=== PATIENT | female | born 2000 | race Caucasian/White ===

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

== ENCOUNTER 2022-01-22 09:34 | Inpatient (IN) | payer BC, OTHER ==
[2022-01-22] MEDS ORDERED: CARBOPROST TROMETHAMINE 250 MCG/ML 1 ML AMP IM PRN (10:06)
[2022-01-22] MEDS ORDERED: OXYTOCIN 10 UNIT/ML 1 ML VIAL IM PRN (10:06)
[2022-01-22] MEDS ORDERED: LIDOCAINE 1% (PF) 10 MG/ML (30 ML SDV) SQ PRN (10:06)
[2022-01-22] MEDS ORDERED: METHYLERGONOVINE 0.2 MG/ML 1 ML AMP IM PRN (10:06)
[2022-01-22] MEDS ORDERED: TERBUTALINE 1 MG/ML VIAL SQ PRN (10:06)
[2022-01-22] MEDS ORDERED: LACTATED RINGERS 1,000 ML IV SCH (10:15)
[2022-01-22] MEDS: OXYTOCIN 30 UNITS/500 ML NS 30 UNIT in SALINE 1 500ML.BAG IV SCH ×2 (10:50→16:45)
[2022-01-22 10:54] LABS: HCT 33.7 % (34.0-46.0); HGB 11.8 gm/dL (11.4-16.0); MCHC 34.9 g/dL (31.0-37.0); MCV 91.6 fL (80.0-100.0); Mean Platelet Volume 11.7; Platelet Count 150 k/uL (150-450); RBC 3.68 m/uL (3.80-5.40); RDW 12.4 % (11.5-15.5)
[2022-01-22 11:31] LABS: Amphetamine Screen,Urine Not Detected (NotDetected); Barbiturate Screen,Urine Not Detected (NotDetected); Benzodiazepines Screen,Urine Not Detected (NotDetected); Cocaine Screen,Urine Not Detected (NotDetected); Methadone Screen, Urine Not Detected (NotDetected); Opiate Screen,Urine Not Detected (NotDetected); Oxycodone Screen, Urine Not Detected (NotDetected); Phencyclidine Screen,Urine Not Detected (NotDetected); Tricyclic Antidepressant,Urine Not Detected (NotDetected); Urn Cannabinoid Scrn Not Detected (NotDetected)
[2022-01-22] MEDS: BUTORPHANOL 1 MG/ML 1 ML VIAL IV PRN ×2 (12:05→14:17)
[2022-01-22 12:49] LABS: Lymphocytes # (M) 2.47 k/uL (1.0-4.8); Monocytes # (M) 0.52 k/uL (0-1.0); Neutrophils # (M) 10.01 k/uL (1.3-7.7); Neutrophils % (M) 77 %; Nucleated Red Blood Cells 0 /100 WBC (0-0); Total Cells Counted 100
[2022-01-22 12:50] LABS: Large Platelets Present
--- NOTE | 2022-01-22 13:03 | P.HPOB ---
History of Present Illness H&P Date: 01/22/22 Chief Complaint: My water broke at 7:30 this morning This is a 21-year-old 1 para 0 EDC 01/24/2022 at 39-5/7 weeks' gestation who presents with clear fluid, spontaneous amniorrhexis which occurred at 0730 hours. Mild irregular uterine contractions to follow. Fetus is been active throughout the . Past medical history is significant for GERD, ulcer disease, asthma, anxiety, hypoglycemia. Past surgical history wisdom teeth extracted, EGD. Current medications was around 15 mg twice daily, vitamins daily, baby aspirin daily. ALLERGIES none known. Family history is significant for asthma, heart disease, hypertension, diabetes, GERD, heart attack, hypoglycemia, mitral valve prolapse, dyslexia, degenerative disc disease. Social history patient is single, father of the baby is present and involved. She works at [employer]. She denies alcohol tobacco or drug use. history significant for blood type B positive, rubella status immune. VDRL testing, urine culture, hepatitis B surface antigen, HIV testing, gonorrhea and chlamydia cultures, group B strep cultures all negative. One-hour Glucola 98. Initial urine drug screen positive for cannabinoids, repeat negative. On exam patient is 5 foot 5 inches, 180 pounds, blood pressure 127/80. General physical exam is within normal limits. Chest is current all griffith. Cervix is 3-4 cm dilated, 60% effaced, -2 station, vertex presentation. Artificial amniorrhexis of a fore bag reveals clear fluid. heart rate is consistent with reactive NST. Impression: 39-5/7 weeks intrauterine , early spontaneous labor. All signs reassuring. Plan: Analgesic options reviewed with the patient. Continue close maternal and surveillance. Oxytocin per hospital protocol. Anticipate normal spontaneous vaginal delivery. Review of Systems Constitutional: Reports as per HPI Past Medical History Past Medical History: Asthma, GERD/Reflux Additional Past Medical History / Comment(s): migraines History of Any Multi-Drug Resistant Organisms: None Reported Past Surgical History: No Surgical Hx Reported Additional Past Surgical History / Comment(s): oral Past Anesthesia/Blood Transfusion Reactions: No Reported Reaction Past Psychological History: Anxiety, Depression Smoking Status: Former smoker Past Alcohol Use History: None Reported Past Drug Use History: Marijuana Additional Drug Use History / Comment(s): Pt states she stopped using when she found out she was - Past Family History Father Family Medical History: Mitral Valve Prolapse (MVP) Medications and Allergies Home Medications Medication Instructions Recorded Confirmed Type Aspirin [Children's Aspirin] 81 mg PO DAILY 01/22/22 01/22/22 History Calcium Carbonate [Calcium] 600 mg PO DAILY 01/22/22 01/22/22 History Pnv,Calcium 72/Iron/Folic Acid 1 tablet PO DAILY 01/22/22 01/22/22 History [ Plus Tablet] Allergies Allergy/AdvReac Type Severity Reaction Status Date / Time No Known Allergies Allergy Verified 06/03/19 13:56 Exam Vital Signs Temp Pulse Resp BP Pulse Ox 01/22/22 10:06 97.3 F L 95 18 127/80 98 Intake and Output 01/21/22 01/22/22 01/22/22 22:59 06:59 14:59 Other: Weight 81.647 kg See dictation under HPI please Results Result Diagrams: 01/22/22 10:35 Abnormal Lab Results - Last 24 Hours (Table) 01/22/22 Range/Units 10:35 WBC 13.0 H (3.8-10.6) k/uL RBC 3.68 L (3.80-5.40) m/uL Hct 33.7 L (34.0-46.0) % Neutrophils # (Manual) 10.01 H (1.3-7.7) k/uL Assessment and Plan Assessment: 39-5/7 weeks intrauterine , early spontaneous labor. All signs reassuring. Plan: Oxytocin per hospital protocol. Close maternal and surveillance. Analgesic options reviewed. Anticipate normal spontaneous vaginal delivery. Time with Patient: Less than 30
[2022-01-22] MEDS ORDERED: BENZOCAINE/MENTHOL SPRAY 1 GM/SPRAY AEROSOL TOPICAL PRN (16:46)
[2022-01-22] MEDS ORDERED: diphenhydrAMINE 50 MG CAP PO PRN (16:46)
[2022-01-22] MEDS ORDERED: diphenhydrAMINE 50 MG/ML 1 ML VIAL IVP PRN ×2 (16:46)
[2022-01-22] MEDS ORDERED: diphenhydrAMINE 25 MG CAP PO PRN (16:46)
[2022-01-22] MEDS ORDERED: ZOLPIDEM 5 MG TAB PO PRN (16:46)
[2022-01-22] MEDS ORDERED: diphenhydrAMINE ELIXIR 25 MG/10 ML CUP PO PRN (16:46)
[2022-01-22] MEDS ORDERED: SIMETHICONE 80 MG CHEWABLE PO PRN (16:46)
[2022-01-22] MEDS ORDERED: LANOLIN CREAM 5 GM TUBE TOPICAL PRN (16:46)
[2022-01-22] MEDS ORDERED: HYDROCORTISONE 2.5% RECTAL CREAM 30 GM TUBE RECTAL PRN (16:46)
--- NOTE | 2022-01-22 16:46 | P.PROBDLV ---
Vaginal Delivery Note - . Vaginal Delivery Note: This is a 21-year-old 1 para 0 EDC 01/24/2022 at 39-5/7 weeks who presented from home with spontaneous amniorrhexis, clear fluid. is remarkable for rubella status immune, blood type B positive, rupee strep cultures negative. Please see dictated history and physical for details. Oxytocin augmentation was started and titrated per hospital protocol. She did receive Stadol intravenously 2, declining the option for epidural. heart rate was reassuring throughout the first and second stages of labor. Patient became completely dilated at 1611 hrs. She began the second stage of labor at that time. Perineal body was prepped and draped in the usual sterile fashion. With excellent maternal expulsive efforts the 's head crowned occiput anterior and she restituted accordingly. There was no nuchal cord noted. The right or anterior shoulder was delivered easily from underneath the pubic symphysis at which time the oropharynx, nasopharynx, and external nares were all bulb suctioned. Patient was officially delivered of a liveborn female at 1628 hrs. Umbilical cord was doubly clamped and ligated, she was handed to waiting nurses for evaluation where scores of 8 and 9 at one and 5 minutes respectively were given. Infant weighed 7 lbs. 2 oz. or 3225 g. Placenta delivered spontaneously, it was inspected and noted to be intact with trivascular cord at 1632 hrs. Perineal body was then redraped. Careful inspection of the cervix, vagina, perineum, periurethral, and perirectal areas revealed a very small first-degree midline laceration at 6:00. This was injected with 1% plain lidocaine and repaired in the usual fashion with 3-0 repeat suture. Excellent reapproximation was noted. Fundus is firm and in the midline, symmetric and 18 week size upon completion of delivery. Patient and her family are allowed to begin the bonding experience in the LDR.
[2022-01-22] MEDS: IBUPROFEN 600 MG TAB PO SCH (17:53)
[2022-01-22 21:51] VITALS: RESP 16
[2022-01-22] MEDS: busPIRone HCl 5 MG TAB PO SCH (21:52)
[2022-01-22] MEDS: SENNOSIDES-DOCUSATE SODIUM 1 EACH TAB PO SCH (21:52)
[2022-01-22] MEDS: ACETAMINOPHEN TAB 325 MG TAB PO PRN (23:10)
[2022-01-23] MEDS: IBUPROFEN 600 MG TAB PO SCH ×3 (04:10→13:10)
--- NOTE | 2022-01-23 07:49 | P.DS ---
Providers Date of admission: 01/22/22 09:53 Expected date of discharge: 01/23/22 Attending physician: Ashely Orozco Primary care physician: Stated None Hospital Course: This is a 22-year-old 1 para 0 EDC 01/24/2022 at 39-5/7 weeks' gestation who presented from home with spontaneous amniorrhexis. Fluid was clear. Unremarkable. Please see my dictated history and physical for details. Patient went on to deliver vaginally a liveborn female with scores of 8 and 9 at one and 5 minutes respectively. There was a small first-degree perineal laceration easily repaired, estimated blood loss 200 mL's. Infant weighed 7 lbs. 2 oz. or 3225 g. Please see dictated delivery note for details. This morning the patient is doing well. She is voiding, ambulating, passing flatus without difficulty. Vital signs are stable and she is afebrile. [place] infant is doing well. Breasts are not engorged. Lochia rubra is minimal to moderate. Patient is judged to be in very good condition for discharge home. She'll follow-up with me in the office in 6 weeks. I have reminded her no intercourse, tampons or douching. We have weekly discuss contraceptive options and we will discuss this further in the office. She will use Advil, Motrin or Aleve as needed for cramping or pain. Prescription for a double electric breast pump is provided. Assessment: Doing well day #1 Patient Condition at Discharge: Good Plan - Discharge Summary Discharge Rx Participant: No New Discharge Prescriptions: No Action Aspirin [Children's Aspirin] 81 mg PO DAILY Calcium Carbonate [Calcium] 600 mg PO DAILY Pnv,Calcium 72/Iron/Folic Acid [ Plus Tablet] 1 tablet PO DAILY Discharge Medication List Aspirin [Children's Aspirin] 81 mg PO DAILY 01/22/22 [History] Calcium Carbonate [Calcium] 600 mg PO DAILY 01/22/22 [History] Pnv,Calcium 72/Iron/Folic Acid [ Plus Tablet] 1 tablet PO DAILY 01/22/22 [History] Follow up Appointment(s)/Referral(s): Ashely Orozco MD [STAFF PHYSICIAN] - 6 Weeks Discharge Disposition: HOME SELF-CARE
[2022-01-23] MEDS: ACETAMINOPHEN TAB 325 MG TAB PO PRN (08:29)
[2022-01-23] MEDS: SENNOSIDES-DOCUSATE SODIUM 1 EACH TAB PO SCH (08:35)
[2022-01-23] MEDS: busPIRone HCl 5 MG TAB PO SCH (13:09)
[2022-01-23 17:03] VITALS: BP 115/78; PULSE 74; TEMP 98.1
== END 2022-01-23 17:30 | disposition home or self-care (01) | DRG 806 ==
LOC: FBPOP 09:34 → 4FBP 09:53
PROVIDERS: ADMIT Obstetrics & Gynecology; ATTEND Obstetrics & Gynecology
PROC: 10E0XZZ Delivery of Products of Conception, External Approach (ICD-10-PCS; principal; 2022-01-22)
PROC: 0HQ9XZZ Repair Perineum Skin, External Approach (ICD-10-PCS; 2022-01-22)
PROC: 4A0HXCZ Measurement of Products of Conception, Cardiac Rate, External Approach (ICD-10-PCS; 2022-01-22)
PROC: 10907ZC Drainage of Amniotic Fluid, Therapeutic from Products of Conception, Via Natural or Artificial Opening (ICD-10-PCS; 2022-01-22)
PROC: 3E033VJ Introduction of Other Hormone into Peripheral Vein, Percutaneous Approach (ICD-10-PCS; 2022-01-22)
PROC: 0HQ9XZZ Repair Perineum Skin, External Approach (ICD-10-PCS; 2022-01-22)
DX: O70.0 First degree perineal laceration during delivery (principal); O99.354 Diseases of the nervous system complicating childbirth; Z37.0 Single live birth; F32.A Depression, unspecified; F41.9 Anxiety disorder, unspecified; J45.909 Unspecified asthma, uncomplicated; K21.9 Gastro-esophageal reflux disease without esophagitis; O99.62 Diseases of the digestive system complicating childbirth; G43.909 Migraine, unspecified, not intractable, without status migrainosus; O99.344 Other mental disorders complicating childbirth; O99.52 Diseases of the respiratory system complicating childbirth; Z3A.39 39 weeks gestation of pregnancy; Z79.82 Long term (current) use of aspirin; Z87.891 Personal history of nicotine dependence
CPT/HCPCS: 59025; 80306; 85025; 86850; 86900; 86901; 99213

== ENCOUNTER → 2024-03-31 | Outpatient (CLI) | payer OTHER ==
--- NOTE | 2024-04-01 07:50 | US ---
EXAMINATION TYPE: US gallbladder DATE OF EXAM: 03/31/2024 COMPARISON: NONE CLINICAL INDICATION: Female, 23 years old with history of K21.9 gerd wo esophagitis; Hx Acid reflux, GERD, and Ulcers; Family Hx Gallbladder disease; Constant nausea, intermittent diarrhea, and post pra ndial abdominal pain. TECHNIQUE: Multiple sonographic images of the right upper quadrant are obtained. FINDINGS: EXAM MEASUREMENTS: Liver Length: 13.7 cm Gallbladder Wall: 0.2 cm CBD: 0.3 cm Right Kidney: 10.1 x 4.5 x 5.3 cm Pancreas: wnl Liver: wnl Gallbladder: ? Debris seen with change in patient position Evidence for sonographic Dmuas's sign: No CBD: wnl Right Kidney: wnl IMPRESSION: Possibly a small amount of sludge within the gallbladder with no other significant abnormality seen.
== END | disposition home or self-care (01) ==
LOC: RADUSWWP 06:45
PROVIDERS: ATTEND Internal Medicine
DX: K82.8 Other specified diseases of gallbladder (principal); K21.9 Gastro-esophageal reflux disease without esophagitis; K25.9 Gastric ulcer, unspecified as acute or chronic, without hemorrhage or perforation
CPT/HCPCS: 76705

== ENCOUNTER → 2024-08-10 | Day surgery (SDC) | payer OTHER ==
[~2024-08-10] MED LIST: LIDOCAINE 1% INJ 10MG/ML (20 ML MDV) ONE; ONDANSETRON 4 MG/2 ML VIAL ONE; PROPOFOL 10 MG/ML 20 ML VIAL IV ONE; fentaNYL (PF) 50 MCG/ML 2 ML AMP ONE
[2024-08-10] MEDS: IV FLUID CONTINUATION 1,000 ML IV ONE (12:10)
[2024-08-10] MEDS: ONDANSETRON 4 MG/2 ML VIAL IVP STA (12:45)
[2024-08-10] MEDS: LACTATED RINGERS 1,000 ML IV SCH (12:45)
--- NOTE | 2024-08-10 13:30 | P.PCN ---
Date of Procedure: 08/10/24 Procedure(s) Performed: BRIEF HISTORY: Patient is a 24-year-old, pleasant, white female scheduled for an upper endoscopy as a part of evaluation of GERD/nausea for the last several months duration. She has been on Nexium 40 mg daily with some help. He has daily nausea with occasional emesis scheduled for an upper endoscopy evaluate further PROCEDURE PERFORMED: Esophagogastroduodenoscopy with biopsy. PREOPERATIVE DIAGNOSIS: GERD/nausea. IV sedation per anesthesia. PROCEDURE: After informed consent was obtained, the patient was brought into the endoscopy unit. IV sedation was administered by Anesthesia under continuous monitoring. Initially the Olympus GIF-140 video endoscope was inserted into the mouth. Esophagus intubated without any difficulty. It was gradually advanced into the stomach and duodenum and carefully examined. The bulb and the second part of the duodenum appeared normal. Biopsies were done in the duodenum to rule out celiac disease the scope at this time was withdrawn to the stomach, adequately insufflated with air, and upon careful examination, mucosa of the antrum, patchy areas of erythema consistent with gastritis and biopsies were done from this area. Mucosa of the body, cardia and the fundus appeared normal. The scope was then withdrawn into the esophagus. The GE junction was located at 39 cm from the incisors. The esophagus appeared normal. There were no erosions or ulcerations seen biopsies were done from the distal esophagus and the patient tolerated the procedure well. IMPRESSION: 1. Mild antral gastritis. 2. No evidence of esophagitis or peptic ulcer. RECOMMENDATIONS: The findings of this examination were discussed with the patient as well as her family. She was advised to follow with the biopsy results. Continue with Nexium 40 mg daily and follow antireflux measures..
[2024-08-10 14:20] VITALS: BP 96/64; PULSE 82; RESP 16
== END ==
LOC: ORWHC2ENDO 11:35
PROVIDERS: ATTEND Internal Medicine Gastroenterology
DX: K29.50 Unspecified chronic gastritis without bleeding (principal); D72.820 Lymphocytosis (symptomatic); K21.00 Gastro-esophageal reflux disease with esophagitis, without bleeding; J45.909 Unspecified asthma, uncomplicated; G43.909 Migraine, unspecified, not intractable, without status migrainosus; F41.8 Other specified anxiety disorders; F17.290 Nicotine dependence, other tobacco product, uncomplicated; Z79.899 Other long term (current) drug therapy; Z79.51 Long term (current) use of inhaled steroids
CPT/HCPCS: 88305; 84703; 43239; J2405; J2001; J3010; J2704

== ENCOUNTER → 2025-04-18 | Outpatient (CLI) | payer OTHER ==
--- NOTE | 2025-05-23 03:02 | EM ---
EVENT MONITOR PROCEDURE PERFORMED: 30-day event monitor. INDICATION: Palpitations. This event monitor reveals sinus rhythm with average heart rate of 87 beats per minute, heart rate varied from 44 beats per minute to 160 beats per minute. There were episodes of sinus bradycardia and sinus tachycardia and rare PVCs are noted. CONCLUSIONS: This event monitor shows sinus rhythm with sinus bradycardia and sinus tachycardia. MMODL / IJN: [id number] /
== END | disposition home or self-care (01) ==
LOC: RADECHMAIN 07:56
PROVIDERS: ATTEND Internal Medicine
DX: I49.3 Ventricular premature depolarization (principal); R00.2 Palpitations
CPT/HCPCS: 93270

== ENCOUNTER 2025-05-04 07:14 | Day surgery (SDC) | payer OTHER ==
[2025-05-04] MEDS: IV FLUID CONTINUATION 1,000 ML IV ONE (07:49)
[2025-05-04 07:51] VITALS: TEMP 97.8
[2025-05-04] MEDS: SODIUM CHLORIDE 0.9% 1,000 ML IV SCH (07:55)
[2025-05-04 11:08] VITALS: BP 101/63; PULSE 64; RESP 16
--- NOTE | 2025-05-04 13:53 | P.EPPROC ---
- EP Procedure Note Electrophysiology Procedure Note: Diagnosis Recurrent presyncope Twelve-lead EKG shows sinus rhythm normal AK narrow QRS normal ST segments normal QT interval Tilt table test per protocol Baseline blood pressure 110/62 mmHg, baseline heart rate 65 beats a minute Patient was tilted upright on maculas 70 degrees per protocol Immediate increase in heart rate without any significant change in blood pressure Heart rate increased to between 100-115 beats a minute. She was nauseous and hot. She also complained of seeing black dots, blurred vision No evidence for secondary neurocardiogenic phenomena When she was laid supine her heart rate went down to 68 beats a minute Impression Normal twelve-lead EKG Orthostatic intolerance/postural tachycardia
== END 2025-05-04 11:04 | disposition home or self-care (01) ==
LOC: CATHEP 07:14
PROVIDERS: ATTEND Internal Medicine Clinical Cardiac Electrophysiology
DX: R55 Syncope and collapse (principal); K21.9 Gastro-esophageal reflux disease without esophagitis; D50.0 Iron deficiency anemia secondary to blood loss (chronic); R00.2 Palpitations; R00.0 Tachycardia, unspecified; E55.9 Vitamin D deficiency, unspecified; E16.2 Hypoglycemia, unspecified; R11.0 Nausea; H53.8 Other visual disturbances; F41.9 Anxiety disorder, unspecified; Z79.899 Other long term (current) drug therapy; Z83.49 Family history of other endocrine, nutritional and metabolic diseases; Z82.49 Family history of ischemic heart disease and other diseases of the circulatory system
CPT/HCPCS: 81025; 93660